=== PATIENT | female | born 1945 | race Caucasian/White ===

== ENCOUNTER 2017-07-13 12:35 | Emergency (ER) | payer OTHER ==
[~2017-07-13] VITALS: Ht 160 cm; Wt 56.4 kg
[~2017-07-13 12:35] MED LIST: Aspirin E.C. PO; NOHOMEMEDS; [UNRECOGNIZED DRUG - REMARK] PO
[2017-07-13 14:57] LABS: HEMATOCRIT 42.1 % (36.0-46.0); MCH 29.3 PG (29.0-34.0); MCV 88.6 FL (83-99); MEAN PLAT.VOLUME 8.5 uM^3 (9.5-12.4); PLATELET COUNT 212 K/uL (156-360); RBC DIS.WIDTH-CV 13.2 % (11.8-14.6); RBC DIS.WIDTH-SD 43.8 % (39-53); RED BLOOD COUNT 4.75 M/uL (3.80-5.20); WHITE BLOOD COUNT 5.7 K/uL (4.1-10.2)
[2017-07-13 15:06] LABS: CHLORIDE 107 mEq/L (99-109); POTASSIUM 4.2 mEq/L (3.7-5.4); SODIUM 140 mEq/L (136-147)
[2017-07-13 15:08] LABS: GLUCOSE 95 mg/dL (70-99)
[2017-07-13 15:10] LABS: ANION GAP 9 MEQ/L (2-14); TOTAL BILIRUBIN 0.3 mg/dL (0.0-1.0)
[2017-07-13 15:12] LABS: ALKALINE PHOSPHATASE 97 IU/L (3-129); GFR ESTIMATE (CALCULATED) > 59 mL/min/
[2017-07-13 15:13] LABS: UREA NITROGEN (BUN) 11 mg/dL (9-23)
[2017-07-13 15:15] LABS: LIPASE 45 U/L (1.0-51.0)
[2017-07-13 15:36] LABS: ADD MIUA? YES; BILIRUBIN NEGATIVE; BLOOD SMALL; COLOR STRAW ((YELLOW)); GLUCOSE (STRIP) NEGATIVE; KETONES NEGATIVE; LEUKOCYTES MODERATE; NITRITE NEGATIVE; PROTEIN (STRIP) NEGATIVE; SPECIFIC GRAVITY 1.006 (1.000-1.030); UROBILINOGEN 0.2 MG/DL (0.2-1.0)
[2017-07-13 15:39] LABS: BACTERIA RARE /HPF; EPITHELIAL CELLS NONE SEEN /HPF; MUCUS TRACE /LPF; RED BLOOD CELLS 0-5 /HPF (0-5); UCUL ADDED? YES
[2017-07-13] MEDS ORDERED: MIRALAX17 GM PO (16:44)
[2017-07-13] MEDS ORDERED: COLACE100 MG PO (16:44)
[2017-07-13] MEDS ORDERED: KEFLEX500 MG PO (16:44)
[2017-07-13 17:07] VITALS: BP 140/85
== END 2017-07-13 17:24 | disposition home or self-care (01) ==
LOC: EME 12:35
PROVIDERS: Nurse Practitioner Family
DX: N39.0 Urinary tract infection, site not specified (principal); K59.00 Constipation, unspecified; R10.13 Epigastric pain; Z98.61 Coronary angioplasty status; I10 Essential (primary) hypertension; E78.5 Hyperlipidemia, unspecified
CPT/HCPCS: 74020; 80053; 81003; 83690; 84443; 85027; 87086; 99281; 99284

== ENCOUNTER → 2017-08-31 | Outpatient (CLI) | payer OTHER ==
[~2017-08-31] MED LIST changes: +COLACE100 MG PO; +KEFLEX500 MG PO; +MIRALAX17 GM PO
== END | disposition home or self-care (01) ==
LOC: RAD 09:57
DX: N85.00 Endometrial hyperplasia, unspecified (principal); R10.9 Unspecified abdominal pain
CPT/HCPCS: 76770; 93975